=== PATIENT | male | born 1965 | race Caucasian/White ===

== ENCOUNTER 2022-08-11 11:16 | Emergency (ER) | payer OTHER ==
[~2022-08-11] VITALS: Ht 175.3 cm; Wt 101.2 kg
[2022-08-11 11:26] VITALS: BP 153/90
--- NOTE | 2022-08-11 12:06 | NUR ---
56 Y/O MALE BIB C/O CONSTIPATION AND BRIGHT RED BLOOD IN STOOL WHEN HE DEFECATES AND INTERMITTENT LEFT LOWER QUADRANT PAIN. LAST BOWEL MOVEMENT YESTERDAY. IS TAKING UNK STOOL SOFTENER. DENIES AB PAIN AT THIS TIME, DENIES VOMITING OR NAUSEA NKA PMH: DENIES
--- NOTE | 2022-08-11 14:26 | NUR ---
PT AMBULATED TO ER BED 7
[2022-08-11 14:43] LABS: BASOPHILS % (AUTO) 0.6 % (0.0-2.0); EOSINOPHILS % (AUTO) 0.2 % (0.0-4.0); HEMATOCRIT 45.7 % (36-52); HEMOGLOBIN 15.3 g/dL (12.0-18.0); LYMPHOCYTES # (AUTO) 1.7 K/uL (2.0-11.5); LYMPHOCYTES % (AUTO) 22.6 % (20.5-51.1); MEAN CORPUSCULAR HEMOGLOBIN 30 pg (27-31); MEAN CORPUSCULAR HGB CONC 33 g/dL (33-37); MEAN CORPUSCULAR VOLUME 90.9 fL (80-94); MONOCYTES # (AUTO) 0.4 K/uL (0.8-1.0); MONOCYTES % (AUTO) 5.1 % (1.7-9.3); NEUTROPHILS # (AUTO) 5.5 K/uL (1.8-7.7); NEUTROPHILS % (AUTO) 71.5 % (42.2-75.2); PLATELET COUNT (AUTO) 226 K/uL (140-450); RED BLOOD CELL COUNT(AUTO) 5.03 MIL/uL (4.20-6.10); RED CELL DISTRIBUTION WIDTH 13.3 % (11.6-13.7); WHITE BLOOD COUNT (AUTO) 7.6 K/uL (4.8-10.8)
--- NOTE | 2022-08-11 14:48 | NUR ---
ASSUMED PATIENT CARE, CONCUR WITH PRIOR NURSING ASSESSMENTS.
[2022-08-11 15:13] LABS: ALBUMIN 4.2 g/dL (3.4-5.0); ANION GAP 14.8 (8-16); CARBON DIOXIDE 27.8 mmol/L (21-32); CREATININE 0.8 mg/dL (0.6-1.3); POTASSIUM 4.6 mmol/L (3.5-5.1); TOTAL BILIRUBIN 0.8 mg/dL (0.0-1.0)
[2022-08-11] MEDS ORDERED: ACET-1195 PO (17:43)
[2022-08-11] MEDS ORDERED: MIRABULK PO (17:43)
--- NOTE | 2022-08-11 17:54 | NUR ---
DISPO AND MEDICAL DECISION DC HOME WITH AFTERCARE INSTRUCTIONS AND E-RX. INSTRUCTIONS UNDERSTOOD BY PATIENT WELL, VS WNL.
[2022-08-11 17:55] VITALS: BP 120/68
== END 2022-08-11 17:54 | disposition home or self-care (01) ==
LOC: MED 11:16
DX: K57.90 Diverticulosis of intestine, part unspecified, without perforation or abscess without bleeding (principal); K59.00 Constipation, unspecified; Z79.899 Other long term (current) drug therapy
CPT/HCPCS: 36415; 74177; 80053; 83690; 85025; 99285; Q9967